=== PATIENT | male | born 1980 | race Caucasian/White ===

== ENCOUNTER 2017-07-08 23:50 | Emergency (ER) | payer OTHER ==
[~2017-07-08] VITALS: Ht 172.7 cm; Wt 88.5 kg
[~2017-07-08 23:50] MED LIST: ALPR2TAB2 PO
[2017-07-09] VITALS: BP 134/83
== END 2017-07-09 00:58 | disposition home or self-care (01) ==
LOC: ER 07-09 00:02
DX: F43.0 Acute stress reaction (principal); F41.9 Anxiety disorder, unspecified; F17.200 Nicotine dependence, unspecified, uncomplicated
CPT/HCPCS: 93005; 99284; A4606; Z7610